=== PATIENT | male | born 1985 | race Caucasian/White ===

== ENCOUNTER 2018-08-21 08:15 | Emergency (ER) | payer OTHER ==
[~2018-08-21] VITALS: Ht 180.3 cm; Wt 65.8 kg
[2018-08-21 08:30] VITALS: BP 117/77
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
[2018-08-21] MEDS ORDERED: BACITRACIN ZIN1 EACH TOPIC (08:50)
[2018-08-21] MEDS ORDERED: CEPHALEXIN500 MG ORAL (08:50)
[2018-08-21] MEDS ORDERED: NORCO 5-325 TA1 EACH ORAL (08:50)
--- NOTE | 2018-08-21 08:50 | NUR ---
ED Nurse Note: The blisters were popped by MD and clear fluid came out. Lidocane was applied. Opened blister area was covered with dry dressing by nurse. Pt cooperated with procedure. No s/s of infection noted.
[2018-08-21] MEDS ORDERED: Lidocaine HCl 2% Jelly 6ml Tube TOPIC ONE (09:00)
[2018-08-21 09:15] VITALS: BP 119/75
--- NOTE | 2018-08-21 09:15 | NUR ---
ED Nurse Note: Pt was cleared to be discharged from [facility]. Pt received discharge instruction with prescriptions. Pt verbalized understanding and improved pain level which was 4/10. Pt ambulated to be discharged in stable condition.
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
== END 2018-08-21 09:15 | disposition home or self-care (01) ==
LOC: EMR 08:40
DX: T24.201A Burn of second degree of unspecified site of right lower limb, except ankle and foot, initial encounter (principal); X15.8XXA Contact with other hot household appliances, initial encounter; Y92.89 Other specified places as the place of occurrence of the external cause; Z88.2 Allergy status to sulfonamides
CPT/HCPCS: 99282